=== PATIENT | male | born 1985 | race Caucasian/White ===

== ENCOUNTER 2017-05-10 23:37 | Emergency (ER) | payer SELFPAY ==
[~2017-05-10] VITALS: Ht 170.2 cm; Wt 81.6 kg
[2017-05-10 23:46] VITALS: BP 131/87
== END 2017-05-11 00:01 | disposition home or self-care (01) ==
LOC: ER 23:37
DX: H00.014 Hordeolum externum left upper eyelid (principal)
CPT/HCPCS: 99283; A4606; Z7610